=== PATIENT | female | born 1995 | race African-American/Black ===

== ENCOUNTER 2018-03-11 18:58 | Emergency (ER) | payer OTHER ==
[2018-03-11 19:07] VITALS: BP 111/71; PULSE 89; TEMP 98.6; BMI 20.7
--- NOTE | 2018-03-11 19:24 | PDOC ---
History of Present Illness - General Chief Complaint: Injury Stated Complaint: FALL Time Seen by Provider: 03/11/18 19:09 History Source: Patient Exam Limitations: No Limitations - History of Present Illness Initial Comments: 03/11/18 19:15 inversion injury to right ankle this afternoon=- slipped on wet floor- states is unable to bear weight to foot now. Came via Ambulance. Occurred: reports: just prior to arrival Severity: reports: moderate Pain Location: reports: lower extremity (right ankle ) Method of Injury: Yes: fall Modifying Factors: improves with: cold therapy, immobilization Loss of Consciousness: no loss of consciousness Past History - Travel Traveled outside of the country in the last 30 days: No Close contact w/someone who was outside of country & ill: No - Past Medical History Allergies/Adverse Reactions: Allergies Allergy/AdvReac Type Severity Reaction Status Date / Time No Known Allergies Allergy Verified 03/11/18 19:05 Home Medications: Ambulatory Orders NK [No Known Home Medication] 03/11/18 CVA: No COPD: No DVT: No - Immunization History Immunization Up to Date: Yes - Suicide/Smoking/Psychosocial Hx Smoking History: Never smoked Information on smoking cessation initiated: No Hx Alcohol Use: No Drug/Substance Use Hx: No Substance Use Type: None Review of Systems - Review of Systems Able to Perform ROS?: Yes Is the patient limited Belarusian proficient: Yes Constitutional: Yes: See HPI. No: Symptoms Reported, Chills, Malaise HEENTM: No: Symptoms Reported Musculoskeletal: Yes: Symptoms Reported, See HPI, Back Pain, Joint Pain, Joint Swelling Integumentary: Yes: See HPI, Bruising All Other Systems: Reviewed and Negative *Physical Exam - Vital Signs Last Vital Signs Temp Pulse Resp BP Pulse Ox 98.6 F 89 15 111/71 99 03/11/18 19:06 03/11/18 19:06 03/11/18 19:06 03/11/18 19:06 03/11/18 19:06 - Physical Exam General Appearance: Yes: Nourished, Appropriately Dressed, Apparent Distress, Mild Distress HEENT: positive: MARY, Normal ENT Inspection, TMs Normal, Pharynx Normal Neck: positive: Supple. negative: Tender Extremity: positive: Normal Capillary Refill, Tender, Swelling. negative: Normal Inspection, Normal Range of Motion (point pain to 5th metatarsal with swelling to mid-foot/ no crepitus or stepoff. 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 intact, Fully Oriented, Alert, Normal Mood/ Affect, Normal Response, Motor Strength /5 Progress Note - Progress Note Progress Note: right ankle sprain=- ben/ castshoe/ crutches provided/ *DC/Admit/Observation/Transfer Diagnosis at time of Disposition: Right ankle sprain Qualifiers: Encounter type: initial encounter Involved ligament of ankle: unspecified ligament Qualified Code(s): S93.401A - Sprain of unspecified ligament of right ankle, initial encounter - Discharge Dispostion Disposition: HOME Condition at time of disposition: Stable Decision to Admit order: No - Referrals Referrals: Zelalem Carlson MD [Primary Care Provider] - - Patient Instructions Printed Discharge Instructions: DI for Ankle Sprain Additional Instructions: Rest, ice to area on and off for 15 minutes 4-6 times a day Avoid heavy lifting or exercise until pain and swelling is resolved or until further directed Keep area highly elevated to reduce swelling Use splints/Ben wrap as directed Followup with orthopedist in one to 2 days if not improving, if significantly improved may wait one week for followup with orthopedist May use ibuprofen 2-200 mg tablets every 6 hours as needed for pain - Post Discharge Activity Forms/Work/School Notes: Back to Work
--- NOTE | 2018-03-11 19:41 | PDOC ---
History of Present Illness - General Chief Complaint: Injury Stated Complaint: FALL Time Seen by Provider: 03/11/18 19:09 History Source: Patient Exam Limitations: No Limitations - History of Present Illness Occurred: reports: just prior to arrival, this afternoon Severity: reports: moderate Pain Location: reports: lower extremity (right ankle ) Past History - Past Medical History Allergies/Adverse Reactions: Allergies Allergy/AdvReac Type Severity Reaction Status Date / Time No Known Allergies Allergy Verified 03/11/18 19:05 Home Medications: Ambulatory Orders NK [No Known Home Medication] 03/11/18 CVA: No COPD: No DVT: No - Immunization History Immunization Up to Date: Yes - Suicide/Smoking/Psychosocial Hx Smoking History: Never smoked Information on smoking cessation initiated: No Hx Alcohol Use: No Drug/Substance Use Hx: No Substance Use Type: None Trauma Specific PMHX - Complaint Specific PMHX Back Injury: No Neck Injury: No Review of Systems - Review of Systems Is the patient limited Greenlandic proficient: Yes *Physical Exam - Vital Signs Last Vital Signs Temp Pulse Resp BP Pulse Ox 98.6 F 89 15 111/71 99 03/11/18 19:06 03/11/18 19:06 03/11/18 19:06 03/11/18 19:06 03/11/18 19:06 ED Treatment Course - RADIOLOGY Radiology Studies Ordered: Category Date Time Status ANKLE-RIGHT [RAD] Stat Radiology 03/11/18 19:39 Ordered *DC/Admit/Observation/Transfer - Referrals Referrals: Zelalem Carlson MD [Staff Physician] - - Patient Instructions - Post Discharge Activity
[2018-03-11] MEDS ORDERED: IBUPROFEN 400 MG TABLET (FP) PO ONE ×2 (19:44→19:50)
== END 2018-03-11 20:07 | disposition home or self-care (01) ==
LOC: JERFT 18:58
DX: S93.401A Sprain of unspecified ligament of right ankle, initial encounter (principal); W01.0XXA Fall on same level from slipping, tripping and stumbling without subsequent striking against object, initial encounter; Y93.89 Activity, other specified; Y92.89 Other specified places as the place of occurrence of the external cause; Y99.8 Other external cause status
CPT/HCPCS: 73610-TC-RT-FY; 84703; 99282-25

== ENCOUNTER 2018-04-26 12:55 | Emergency (ER) | payer OTHER ==
[2018-04-26 13:09] VITALS: BP 119/72; PULSE 76; TEMP 98.5; BMI 20.6
--- NOTE | 2018-04-26 13:21 | PDOC ---
History of Present Illness - General Chief Complaint: Sore Throat Stated Complaint: PAIN Time Seen by Provider: 04/26/18 13:17 History Source: Patient Exam Limitations: No Limitations - History of Present Illness Initial Comments: 04/26/18 13:32 Patient came for evaluation of sore throat pain. Acute onset yesterday and is progressively worsened. States she felt feverish last night but has not taken her temperature. States coworker was ill with same a few days before. Timing/Duration: unsure, 24 hours Severity: moderate Associated Symptoms: reports: fever/chills, headaches, malaise Past History - Travel Traveled outside of the country in the last 30 days: No Close contact w/someone who was outside of country & ill: No - Past Medical History Allergies/Adverse Reactions: Allergies Allergy/AdvReac Type Severity Reaction Status Date / Time No Known Allergies Allergy Verified 04/26/18 13:07 Home Medications: Ambulatory Orders NK [No Known Home Medication] 03/11/18 CVA: No COPD: No DVT: No - Immunization History Immunization Up to Date: Yes - Suicide/Smoking/Psychosocial Hx Smoking History: Never smoked Hx Alcohol Use: No Drug/Substance Use Hx: No Substance Use Type: None Review of Systems - Review of Systems Able to Perform ROS?: Yes Is the patient limited Latvian proficient: Yes Constitutional: Yes: Symptoms Reported, See HPI, Fever, Malaise HEENTM: Yes: Symptoms Reported, See HPI, Nose Congestion, Throat Pain, Throat Swelling Respiratory: Yes: See HPI, Cough Musculoskeletal: Yes: See HPI. No: Symptoms Reported Integumentary: Yes: Symptoms Reported, See HPI Neurological: Yes: Symptoms reported, See HPI, Headache All Other Systems: Reviewed and Negative *Physical Exam - Vital Signs Last Vital Signs Temp Pulse Resp BP Pulse Ox 98.5 F 76 16 119/72 100 04/26/18 13:07 04/26/18 13:07 04/26/18 13:07 04/26/18 13:07 04/26/18 13:07 - Physical Exam General Appearance: Yes: Nourished, Appropriately Dressed, Apparent Distress, Mild Distress HEENT: positive: MARY, TMs Normal, Pharyngeal Erythema, Tonsillar Exudate ( grayish exudate bilaterally beefy red tonsils), Tonsillar Erythema, Nasal Congestion, Rhinorrhea. 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, Fully Oriented, Alert, Normal Mood/ Affect, Normal Response, Motor Strength 5/5 *DC/Admit/Observation/Transfer Diagnosis at time of Disposition: Pharyngitis Qualifiers: Pharyngitis/tonsillitis etiology: unspecified etiology Qualified Code(s): J02.9 - Acute pharyngitis, unspecified - Discharge Dispostion Disposition: HOME Condition at time of disposition: Stable Decision to Admit order: No - Referrals Referrals: Zelalem Carlson MD [Primary Care Provider] - - Patient Instructions Printed Discharge Instructions: DI for Pharyngitis/Tonsillopharyngitis -- Adult Additional Instructions: Rest, drink lots of fluids: Teas, water, soups Eat cold things: Ice cream, ice pops, ice chips Saltwater gargles Steamy showers/seem to face break up mucus Avoid contact with others until fevers and pain resolved Lots of handwashing and good hygiene, this is contagious You have been treated with Bicillin LA 1.2 million units injection which is a one-time treatment for strep pharyngitis. You will not need to take any further antibiotics. Tylenol or Motrin for fever and pain Followup with private physician in one to 2 days as needed if not improving Return to emergency department for worsened symptoms, fevers, dehydration - Post Discharge Activity Forms/Work/School Notes: Back to Work
[2018-04-26] MEDS ORDERED: PENICILLIN G BENZATHINE 1,200,000 UNIT/2 ML PFS IM ONE (13:32)
[2018-04-26] MEDS ORDERED: PENICILLIN G BENZATHINE 2,400,000 UNIT/4 ML PFS ONE (14:24)
== END 2018-04-26 14:50 | disposition home or self-care (01) ==
LOC: JERFT 12:55
DX: J02.9 Acute pharyngitis, unspecified (principal)
CPT/HCPCS: 84703; 99281-25